=== PATIENT | male | born 1985 | race Caucasian/White ===

== ENCOUNTER 2016-08-25 10:33 | Emergency (ER) | payer BC ==
[~2016-08-25] VITALS: Ht 180.3 cm; Wt 91.4 kg
[~2016-08-25 10:33] MED LIST: ADVIL,NUPRIN,M200 MG PO; FLONASE16 G1 BOTH NARES; IBUPROFEN600 MG PO; INDOCIN25 MG PO; KETOCONAZOLE60 GM TP; MOTRIN600 MG PO; MOTRIN800 MG PO; MUCUS RELIEF600 M1 PO; MYCOSTATIN15 GM PO; NORCO 5/3251 TABLET PO; PERCOCET 5/31 TABLET PO; ZOFRAN4 MG PO; ZYRTEC10 M2 PO
[2016-08-25 12:28] LABS: ADD MIUA? NO; BILIRUBIN NEGATIVE; BLOOD NEGATIVE; COLOR YELLOW ((YELLOW)); GLUCOSE (STRIP) NEGATIVE; KETONES NEGATIVE; LEUKOCYTES NEGATIVE; NITRITE NEGATIVE; PROTEIN (STRIP) NEGATIVE; SPECIFIC GRAVITY 1.021 (1.000-1.030); UROBILINOGEN 0.2 MG/DL (0.2-1.0)
[2016-08-25] MEDS ORDERED: VALIUM5 MG PO (13:24)
[2016-08-25] MEDS ORDERED: LIDODERM 5% P1 PATCH TD (13:24)
[2016-08-25] MEDS ORDERED: MOTRIN800 MG PO (13:24)
[2016-08-25] MEDS ORDERED: NORCO 7.5/321 TABLET PO (13:24)
[2016-08-25 13:49] VITALS: BP 148/90
== END 2016-08-25 13:50 | disposition home or self-care (01) ==
LOC: EME 10:33 → RME 10:33
PROVIDERS: Physician Assistant
DX: S39.012A Strain of muscle, fascia and tendon of lower back, initial encounter (principal); X50.0XXA Overexertion from strenuous movement or load, initial encounter; Y99.0 Civilian activity done for income or pay; F17.200 Nicotine dependence, unspecified, uncomplicated; Z88.6 Allergy status to analgesic agent
CPT/HCPCS: 81003; 99281; 99284; J1885; J3010